=== PATIENT | male | born 1970 | race Caucasian/White ===

== ENCOUNTER 2018-10-21 13:02 | Observation (INO) | payer OTHER ==
[~2018-10-21] VITALS: Ht 175.3 cm; Wt 119.3 kg
--- OUTSIDE RECORDS SUMMARY | 2018-10-21 13:05 | XMS REPORT | Clinical Summary ---
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 Encounters Care Team Description Date Type Specialty 06/05/2018 Clinical Corporate Wellness Support after 10/20/2017 Immunizations Name Dates Previously Given Next Due FLUCELVAX QUAD PF (0.5mL 06/05/2018 syringe) Family History Medical History Relation Name Comments Cancer Maternal Grandmother Relation Name Status Comments Maternal Grandmother Social History Date Tobacco Use Types Packs/Day Years Used Never Smoker Alcohol Use Drinks/Week oz/Week Comments Yes 1 Glasses of wine Sex Assigned at Date Recorded Not on file Industry Job Start Date Occupation Not on file Not on file Not on file Travel End Travel History Travel Start No recent travel history available. Last Filed Vital Signs Not on file Plan of Treatment Health Maintenance Due Date Last Done Comments INFLUENZA VACCINE Completed 06/05/2018 Results Not on fileafter 10/20/2017 Insurance Payer Benefit Subscriber ID Type Phone Address Plan / Group AETNA AETNA PPO xxxxxxxxxx PPO OPEN CHOICE Advance Directives Patient has advance care planning documents on file. For more information, mukesh everett contact: Duy Ann [address] [place], [place] [address] [place] [address]
--- NOTE | 2018-10-21 14:51 | Diagnostic Imaging Report ---
CT BRAIN -[facility] HISTORY: Left-sided numbness, headache COMPARISON: None. TECHNIQUE: Noncontrast axial scans were obtained from skull base to the vertex. Coronal and sagittal reconstructions obtained from the axial data. One or more of the following dose reduction techniques were used: Automated exposure control, adjustment of the mA and/or kV according to patient size, and/or utilization of iterative reconstruction technique. Beam hardening artifacts obscure some details. DISCUSSION: Scalp/Skull: Unremarkable. Brain sulci: Appropriate for patient's age. Ventricles: Normal in size and configuration. No hydrocephalus. Extra-axial spaces: No masses or fluid collections. Mild carotid siphon calcifications are present. Parenchyma: No definite abnormal densities. No mass, hemorrhage, or large vascular territory acute infarct. Dural sinuses: No abnormal densities. Sellar/Suprasellar region: Intact. Skull base: Intact. Incidental findings: Trace left mastoid effusion is present. IMPRESSION: No acute intracranial abnormalities. Signed by: Dr. Joshua Trinh M.D. on 10/21/2018 2:47 PM
[2018-10-21] MEDS ORDERED: ASPIRIN 325 MG TAB PO ONE (15:15)
--- NOTE | 2018-10-21 15:29 | NUR ---
PT RESTING, VITAL SIGNS STABLE, FAMILY AT BEDSIDE, PT TO BE TRANSFERED, PT AND FAMILY AWARE OF POC, PT VOICES NO COMPLAINTS AT THIS TIME.
--- NOTE | 2018-10-21 15:53 | NUR ---
[facility] CALLED FOR TRANSPORT ETA 30-35 MINUTES
--- OUTSIDE RECORDS SUMMARY | 2018-10-21 16:05 | XMS REPORT ---
Author Author [facility] Address Unknown Phone Unavailable Care Team Providers Care Radiation Oncology Nurse Name Role Phone Charissa MONSIVAIS Unavailable Unavailable Problems This patient has no known problems. Allergies, Adverse Reactions, Alerts This patient has no known allergies or adverse reactions. Medications This patient has no known medications. Results Test Description Test Time Test Comments Text Results Atomic Results Result Comments CT BRAIN WO-HOPD 2018-10-21 14:44:00 [place] [address] Patient Name: LEIDY HOUSTON MR #: [id number] : 1970 Age/Sex: 47/M Req #: [id number] Adm Physician: Ordered by: DANIA MONSIVAIS MD Report #: [id number] Location: [facility] Room/Bed: Procedure: [id number] HOPD/CT BRAIN WO-HOPD Exam Date: 10/21/18 Exam Time: 1428 REPORT STATUS: Signed CT BRAIN WO-HOPD HISTORY: Left-sided numbness, headache COMPARISON: None. TECHNIQUE: Noncontrast axial scans were obtained from skull base to the vertex. Coronal and sagittal reconstructions obtained from the axial data. One or more of the following dose reduction techniques were used: Automated exposure control, adjustment of the mA and/or kV according to patient size, and/or utilization of iterative reconstruction technique. Beam hardening artifacts obscure some details. DISCUSSION: Scalp/Skull: Unremarkable. Brain sulci: Appropriate for patient's age. Ventricles: Normal in size and configuration. No hydrocephalus. Extra-axial spaces: No masses or fluid collections. Mild carotid siphon calcifications are present. Parenchyma: No definite abnormal densities. No mass, hemorrhage, or large vascular territory acute infarct. Dural sinuses: No abnormal densities. Sellar/Suprasellar region: Intact. Skull base: Intact. Incidental findings: Trace left mastoid effusion is present. IMPRESSION: No acute intracranial abnormalities. Signed by: Dr. Joshua Trinh M.D. on 10/21/2018 2:47 PM Dictated By: JOSHUA TRINH MD [id number] Transcribed By: CHELA on 10/21/18 1447 COPY TO: DANIA MONSIVAIS MD
--- OUTSIDE RECORDS SUMMARY | 2018-10-21 16:05 | XMS REPORT | Clinical Summary ---
Author Author [facility] Organization [facility] Address Unknown Phone Unavailable Care Team Providers Care Veneer Lathe Operator Name Role Phone Asked, No Pcp PCP [...] more information, mukesh everett contact: Duy Ann [address] [place], [place] [address] [place] [address]
[2018-10-21] MEDS ORDERED: HYDRALAZINE HCL 20 MG/ML VIAL IV PRN (17:15)
[2018-10-21 17:17] VITALS: BP 190/102
[2018-10-21 17:21] VITALS: BP 190/102
--- NOTE | 2018-10-21 17:29 | NUR ---
patient received from [facility] via ambulance. placed in room and oriented to environment. see by Dr Honeycutt and orders received. BP elevated but will treat with hydralazine. no major distress.
--- NOTE | 2018-10-21 18:38 | Diagnostic Imaging Report ---
Exams: Head and intracranial MRA without IV contrast History: Possible stroke, left-sided numbness Comparison studies: Same-day head CT 10/21/2018 at 14:28 hours Technique: Brain: Axial DWI, axial coronal T2 FLAIR, precontrast axial T1 FLAIR, axial and sagittal T2, axial T2*GRE. Intracranial MRA: Axial 3-D [id number] with coronal, sagittal and 3-D MIP reformats. Intravenous contrast: None Findings: Brain: Scalp: No abnormal signal. No masses. Bone marrow: Normal in signal intensity. Brain sulci: Normal in size. Ventricles: Normal in size and configuration. No hydrocephalus. Extra axial spaces: No mass, no fluid collection. Parenchyma: No abnormal signal intensities. No masses, hemorrhage, acute ischemia or chronic ischemic insults. Suprasellar region: No abnormalities. Craniocervical junction: No abnormalities. The foramen magnum is patent. No Chiari malformations. Vessels: Normal flow-voids in the arteries and sinuses. Paranasal sinuses: Nonspecific T2 hyperintense inflammatory mucosal thickening with small retention cyst in the left maxillary sinus. Incidental findings: Nonspecific reactive T2 hyperintense changes in the mastoids bilaterally. Intracranial MRA: No aneurysm or arterial vascular malformation identified. Internal carotid arteries: Patent. No flow signal signal abnormalities. Middle cerebral arteries: Patent, no flow signal abnormalities. Anterior cerebral arteries: Patent, no flow signal abnormalities. Vertebrobasilar circulation: Patent. No signal abnormalities. Included vertebral arteries: Patent, no flow signal abnormalities. Basilar artery: Patent, no flow signal abnormalities. Posterior cerebral arteries: Patent, no flow signal abnormalities. Anatomical variants: Acom: Visualized. Pcoms: Patent bilaterally. Vertebral arteries: Co-dominant. IMPRESSION: Brain: No intracranial abnormalities. Intracranial MRA: 1. No abnormalities. 2. Specifically, no major branch occlusion or stenosis. Signed by: Dr. Too Walker M.D. on 10/21/2018 6:35 PM
[2018-10-21] MEDS: LISINOPRIL 10 MG TAB PO SCH (19:15)
[2018-10-21 20:40] VITALS: BP 187/84
[2018-10-21 21:01] LABS: CREATINE KINASE MB 1.7 ng/mL (0-5.0)
[2018-10-22] VITALS (10 sets, daily range): BP systolic 100–173; BP diastolic 56–75
--- NOTE | 2018-10-22 00:17 | Consultation ---
DATE OF CONSULTATION: 10/21/2018 Cardiology Consultation. CONSULTING PHYSICIAN: Bright Sandra MD, Interventional Cardiology. REASON FOR CONSULTATION: Possible TIA and abnormal EKG. HISTORY OF PRESENT ILLNESS: Mr. Waggoner is a 47-year-old man with history of morbid obesity, hypertension, remote history of coronary angiography per the patient report with no significant abnormalities at that time, who presents to [facility] after being evaluated by Pulmonary with findings of tingling of sudden onset to left upper extremity and left lower extremity while the patient was driving back from the [place]. He denied any chest discomfort or shortness of breath. He denied any lightheadedness or palpitations at that time. He does, however, endorse episodes of palpitations felt intermittently as well as symptoms associated with heart racing at times, which occurs while the patient is at rest or during physical activity. Symptoms have resolved since admission. ALLERGIES: NO KNOWN DRUG ALLERGIES. PAST MEDICAL HISTORY: High blood pressure. SOCIAL HISTORY: No active smoking, alcohol, or drugs. PHYSICAL EXAMINATION: VITAL SIGNS: Temperature 98.7, heart rate 80, respiratory rate 16, blood pressure 170/99. Of note, the patient reports systolic blood pressure in the 200s earlier when actively symptomatic and O2 saturation 96% on room air. GENERAL: In no acute distress. Alert. NECK: No JVD. No carotid bruits. CHEST: Clear to auscultation. CARDIOVASCULAR: Regular rate and rhythm. Normal S1 and S2. No S3. No S4. No murmurs or rubs. ABDOMEN: Soft, nontender, nondistended. No cyanosis, clubbing, or edema. CARDIOVASCULAR MEDICATIONS: Reviewed. Lisinopril 10 mg daily, Lovenox 40 mg subcu daily, hydralazine p.r.n. 10 mg q.6 hours, and aspirin 325 mg daily. IMAGING: EKG, normal sinus rhythm with nonspecific repolarization abnormalities. Brain MRI shows no intracranial abnormalities. Brain intracranial MRA shows no abnormalities, specifically no major branch occlusions or stenosis. CT head, no bleed, no acute intracranial abnormalities. ASSESSMENT: 1. Transient ischemic attack. 2. Abnormal EKG with nonspecific repolarization abnormalities. 3. Uncontrolled hypertension. 4. Morbid obesity. RECOMMENDATIONS: 1. Neurology consult. 2. Statin. 3. Gradual adjustment of antihypertensives to achieve optimal blood pressure control over the following several weeks. 4. Aspirin. 5. Concerned regarding palpitations about possible atrial fibrillation/flutter. Keep in Telemetry while in-house. We will plan for outpatient further workup, which may include telemetry monitoring versus ILR. 6. Obtain echocardiogram, carotid ultrasound. I thank Dr. Honeycutt for the opportunity to participate in the care of Mr. Waggoner. Please feel free to call with any questions or concerns. Bright Sandra MD AFV/MODL /[id number]
--- NOTE | 2018-10-22 01:24 | History and Physical ---
CHIEF COMPLAINT: Numbness and tingling on the left side of the body. HISTORY OF PRESENT ILLNESS: Mr. Waggoner is a 47-year-old male. He presented to the emergency room. 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 When he came in, his blood pressure was 198/97 and he was still having numbness and tingling. It resolved while he was in the emergency room. Now, he has minimal numbness in the left small finger and the left toe, absent little toe. He is denying any chest pain, shortness of breath. He still has some headaches in the emergency room. His EKG showed some T-wave inversion and he has never had any cardiac issues in the past. He has been diagnosed with hypertension, however, he does not take his antihypertensive medications. He is and lives with his girlfriend. His white cell count is 8.6, hemoglobin is 14.0, and hematocrit is 41.8, then he came to the emergency room, his creatinine 0.9. REVIEW OF SYSTEMS: GENERAL: Denies any fever or chills. Denies any head trauma. ENT: Denies any earaches. CVS: Denies any chest pain. RESPIRATORY: Denies any shortness of breath. The rest of the review of systems are negative except as in HPI. PAST MEDICAL HISTORY: Hypertension. PAST SURGICAL HISTORY: None. FAMILY AND SOCIAL HISTORY: He does not smoke. Does not drink. He lives with his girlfriend. 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 PHYSICAL EXAMINATION: VITAL SIGNS: Temperature 97.6, pulse of 98, blood pressure 173/102, respiratory rate 18. HEENT: Head is atraumatic and normocephalic. NECK: Supple. CHEST: Clear to auscultation bilaterally. No wheezing. HEART: S1 and S2 audible. ABDOMEN: Soft and nontender. EXTREMITIES: No pedal edema. NEUROLOGIC: His strength is 5/5 in both upper and lower extremities. LABORATORY DATA: Labs done at [facility]anding emergency room shows white count of 8.6, hemoglobin 14.0, platelets 272. Sodium of 142, potassium of 3.8, chloride 105, BUN 9, creatinine is 0.9. EKG showed normal sinus rhythm, T-wave inversion. CT of the head showed no acute bleed. ASSESSMENT/PLAN: Mr. Waggoner is a 47-year-old male, presented to the emergency room with possible transient ischemic attack and uncontrolled hypertension. CURRENT PROBLEM: 1. Transient ischemic attack. 2. Uncontrolled hypertension. PLAN: 1. I will start the patient on antihypertensive medication, aspirin. 2. MRI and MRA of the head. 3. Neurology consult. 4. Cardiology consult. MD ENRIQUETA Rodríguez/SANDRA /[id number]
--- NOTE | 2018-10-22 04:43 | Consultation ---
DATE OF CONSULTATION: 10/21/2018 Neurology Consult Note HISTORY OF PRESENT ILLNESS: Mr. Waggoner is a 47-year-old right-hand dominant man with past medical history significant for hypertension and hyperlipidemia, not compliant with treatment for approximately 18 months, admitted to [facility] on October 21, 2018, with symptoms suspicious for a transient ischemic attack. Beginning at approximately 11:30 on October 21, 2018, the patient experienced the abrupt onset of tingling in his left hand. Over a short period of time, the tingling progressed over the left arm and the left leg. Mr. Waggoner reports a heavy sensation in the left leg as well. The patient does not report a visual field cut or other disturbance, dysarthria, aphasia, facial droop, hemiparesis, poor balance, impairment of gait, dizziness, or confusion. The above described symptoms persisted for approximately 7-8 minutes, then spontaneously resolved. Over the following 1-2 hours, Mr. Waggoner experienced the above described symptoms approximately 5 or 6 times. With the last occurrence, the patient experienced headache located in the left temporoparietal region without radiation. The pain was described as dull and aching and rated at 4-5/10. There was no photophobia, phonophobia, nausea, vomiting, dizziness, visual disturbance, or other symptoms associated with the headache. Mr. Waggoner does not report a history of migraines or other headaches. The patient does not report neck pain or stiffness. Mr. Waggoner presented to the emergency center at [facility] on the afternoon of October 21, 2018, for further evaluation of his symptoms. Upon arrival in the emergency center, the patient was afebrile with a blood pressure of 198/97 mmHg and a pulse of 98 beats per minute. His neurological examination was documented as being nonfocal. A CT of the brain without contrast was performed while the patient was in the emergency center. There was no evidence of recent large territorial ischemia on the study. Mr. Waggoner was then admitted to [facility] under observation status for further evaluation and treatment. At present, with the exception of some tingling in the 5th digit of the left hand and tingling in the left ankle, all of the above described symptoms have resolved. REVIEW OF SYSTEMS: Tingling of the left arm and leg, chronic low back pain, headache. Otherwise, a 12-point review of systems is negative. PAST MEDICAL HISTORY: Hypertension, hyperlipidemia, elevated uric acid level, and nephrolithiasis. PAST SURGICAL HISTORY: Cardiac catheterization, left ankle arthroscopy, tonsillectomy, appendectomy, and vasectomy. PAST HOSPITALIZATIONS: Surgeries/procedures as listed. FAMILY MEDICAL HISTORY: Hypertension, hyperlipidemia, heart disease with myocardial infarctions, strokes, and colon cancer. SOCIAL HISTORY: Mr. Waggoner is . 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 The patient does not report current or prior tobacco, alcohol, or recreational drug use. HOME MEDICATIONS: None. ALLERGIES: NO KNOWN DRUG ALLERGIES. NO KNOWN FOOD ALLERGIES. NO KNOWN ALLERGIES TO LATEX. NO KNOWN ALLERGIES TO IODINE OR OTHER CONTRAST MATERIALS. PHYSICAL EXAMINATION: VITAL SIGNS: Height 69 inches, weight 263 pounds, BMI is 38.8 kg/m2. Blood pressure 173/102 mmHg, pulse 76 beats per minute, respiratory rate 17 breaths per minute, and oxygen saturation 96% on room air. GENERAL: The patient is awake and alert, does not appear distressed. Morbidly obese. HEENT: Normocephalic, atraumatic. Pupils are equal, round, and reactive to light. Moist mucous membranes. NECK: Supple. No appreciable thyromegaly. No appreciable carotid bruits. CARDIOVASCULAR: S1 and S2, regular rate and rhythm. No murmurs, rubs, or gallops. RESPIRATORY: Clear to auscultation bilaterally. No wheezes, rhonchi, or rales. EXTREMITIES: The skin is warm and dry. No clubbing or cyanosis. There is trace pretibial pitting edema. The posterior tibial and dorsalis pedis pulses are 2+ and symmetric. SKIN: No rashes or lesions. NEUROLOGIC: Memory/Attention: The patient is awake and alert, oriented to person, place, time, and situation. Cranial Nerves: Cranial nerve I - not tested. Cranial nerve II, III, IV and - pupils are equal and round, reactive briskly to light (from 4 mm to 2 mm). Extraocular movements intact. No nystagmus. Cranial nerve V - sensation to light touch and pinprick is intact in the bilateral V1 through V3 distributions. Strength in the temporalis and mastoid muscles is within normal limits. Cranial nerves VII - the face is symmetric as are all facial movements. Strength is within normal limits. Cranial nerve VIII - hearing is intact to finger rub bilaterally. Cranial nerve IX, X - the soft palate elevates equally and symmetrically. Cranial nerve XI - normal strength to the bilateral sternocleidomastoid and trapezius muscles. Cranial nerves XII - the tongue protrudes midline and moves symmetrically from side to side. Strength: Bulk is normal. Strength is 5/5 in the bilateral deltoids, biceps, triceps, wrist flexors and extensors, finger flexors and extensors, intrinsic hand muscles, hip flexors, knee flexors and extensors, ankle dorsiflexion and plantar flexion, and intrinsic foot muscles. Tone is normal. DTRs: Deep tendon reflexes are 2+ and symmetric at the triceps, biceps, brachioradialis, patellas, and Achilles. Plantar responses are flexor bilaterally. Sensation: Sensation is intact to light touch and pinprick in both arms and both legs. Cerebellar: [id number] and heel-seaman movements are intact without dysmetria or other impairment. Gait: Deferred. Speech: Spontaneous speech is normal without dysarthria or aphasia. Repetition is intact. Involuntary movements: None. Pronator drift: None. LABORATORY DATA: A comprehensive metabolic panel revealed mildly elevated AST and ALT. A complete blood count with differential and platelets was unremarkable. Cardiac enzymes are negative x1. DIAGNOSTIC STUDIES: Electrocardiogram, 10/21/2018: Normal sinus rhythm at [address] of the brain without contrast, 10/21/2018: On my review, there is no evidence of recent or remote large territorial ischemia, hemorrhage, mass, or mass effect. Cerebral volumes are appropriate for age. There are no findings suggestive of chronic small vessel ischemic disease. MRI of the brain without contrast, 10/21/2018: On my review, there is no evidence of recent large territorial ischemia, hemorrhage, mass, or mass effect. No remote vascular insults are seen. Cerebral volumes are appropriate for age. There are no findings compatible with chronic small vessel ischemic disease. MRA of the brain, 10/21/2018: Unremarkable. ASSESSMENT AND PLAN: Mr. Waggoner is a 47-year-old right-hand dominant man with multiple untreated vascular risk factors, admitted to [facility] on October 21, 2018, with intermittent tingling over the left arm and left leg. At present, the patient's neurological examination is nonfocal. His laboratory data and other diagnostic studies have been reviewed and are documented above. In my opinion, it is unlikely Mr. Waggoner experienced a transient ischemic attack. Under normal circumstances, a person will not experience several TIAs, one after another. Generally, a person may experience one or two TIAs, by several hours/days, then will have a stroke. Given the presence of a headache with the last "TIA," it is possible the patient experienced a migraine aura. A seizure is another possibility, though less likely due to the duration of each event. Lastly, an entrapment neuropathy or radiculopathy is possible as well. However, a TIA cannot be absolutely excluded, and Mr. Waggoner does have vascular risk factors which have gone untreated for approximately eighteen months. Therefore, the patient will be evaluated and treated as though he experienced a TIA as this is the most serious of potential diagnoses. 1. A lipid panel and hemoglobin A1C will be ordered. 2. An echocardiogram will be ordered. 3. Bilateral carotid artery ultrasound with Doppler will be ordered. 4. Treatment with Aspirin 325 mg by mouth daily will be continued. 5. The patient's blood pressure may be gradually normalized. His goal blood pressure prior to discharge is less than 140/90 mmHg. Lisinopril 10 mg by mouth daily as been prescribed. Mr. Waggoner has a PRN antihypertensive medication available as well. Monitor vital signs per unit protocol and add/adjust medications as necessary. 6. The patient's goal total cholesterol is less than 200 with a LDL of less than 70. Follow up the results of the lipid panel and prescribe a statin as appropriate. 7. The patient's goal hemoglobin A1C is less than 7.0. Follow up the results of the hemoglobin A1C. Tight glycemic control is recommended while the patient is in the hospital. 8. Speech and physical therapy consultations will be deferred because the patient has no deficits. 9. GI prophylaxis with Pepcid 20 mg by mouth twice daily with meals. DVT prophylaxis with Lovenox 40 mg subcutaneously daily. 10. Defer treatment of the remaining medical comorbidities to the primary/other services following the patient. Thank you for this consultation. I will continue to follow the patient while he remains in the hospital. Time Spent: 50 minutes. Glenda Hobbs MD CP/SANDRA /[id number] [place]
[2018-10-22 05:38] LABS: BASOPHILS # (AUTO) 0.1 (0.0-0.1); BASOPHILS % 0.6 % (0.0-1.0); EOSINOPHILS # (AUTO) 0.2 (0.0-0.4); HEMATOCRIT 43.1 % (38.2-49.6); HEMOGLOBIN 14.6 g/dL (14.0-18.0); LYMPHOCYTES # (AUTO) 3.2 (1.0-3.2); MEAN CORPUSCULAR HEMOGLOBIN 30.5 pg (28-32); MEAN CORPUSCULAR HGB CONC 33.9 g/dL (31-35); MONOCYTES # (AUTO) 0.9 (0.2-0.8); MONOCYTES % 11.2 % (4.4-11.3); NEUTROPHILS # (AUTO) 3.8 (2.1-6.9); NEUTROPHILS % 45.9 % (38.7-80.0); PLATELET COUNT 263 x10e3/uL (140-360); RED BLOOD COUNT 4.79 x10e6/uL (4.3-5.7); RED CELL DISTRIBUTION WIDTH 12.4 % (11.7-14.4)
[2018-10-22 05:54] LABS: ANION GAP 11.1 mmol/L (8-16); BLOOD UREA NITROGEN 8 mg/dL (7-26); BUN/CREATININE RATIO 8 (6-25); CALCIUM 8.7 mg/dL (8.4-10.2); CARBON DIOXIDE 28 mmol/L (22-29); CHLORIDE 102 mmol/L (98-107); CREATININE, SERUM 0.97 mg/dL (0.72-1.25); EST GLOMERULAR FILTRATION RATE > 60 ML/MIN (60-); GLUCOSE 102 mg/dL (74-118); POTASSIUM 5.1 mmol/L (3.5-5.1); SODIUM 136 mmol/L (136-145)
[2018-10-22 06:02] LABS: CHOL/HDL RATIO 5.8 (3.9-4.7)
[2018-10-22 06:08] LABS: CREATINE KINASE MB 1.5 ng/mL (0-5.0)
--- NOTE | 2018-10-22 07:00 | NUR ---
RN performed morning assessment on patient. Alert and oriented x 3 with elevated BP. Patient reported no chest pain, weaknesses.
[2018-10-22] MEDS: FAMOTIDINE 20 MG TAB PO SCH ×2 (07:22→17:22)
[2018-10-22] MEDS: LISINOPRIL 10 MG TAB PO SCH (08:30)
[2018-10-22] MEDS: ASPIRIN 325 MG TAB EC PO SCH (08:30)
[2018-10-22] MEDS: METOPROLOL SUCCINATE 25 MG TAB XL PO SCH (08:30)
[2018-10-22] MEDS ORDERED: ATORVASTATIN 20 MG TAB PO SCH (09:00)
[2018-10-22 14:01] LABS: CREATINE KINASE MB 1.4 ng/mL (0-5.0)
--- NOTE | 2018-10-22 14:37 | NUR ---
SOCIAL WORK INITIAL ASSESSMENT Mechanical Apprentice to bedside to discuss plan of care with patient/family. CM/SW role and care transitions discussed. Anticipated discharge plan discussed along with duration of care. CM/SW discussed patients right to make decisions in care. CM/SW work hours given. Patient lives: HOUSE WITH [facility] Admit/Transfer: VIA ED POA/Emergency contact: GIRLIEND [phone] Current/Previous Home Health: NONE PCP/Follow-up Care: NONE Current/Previous DME: NONE Other Services: NONE Employment Status: [employer] Areas of Concerns: NONE Referral Needs: NONE Education Needs: NONE IMM/CHAPMAN given and signed (if applicable): NA Goal for discharge: RETURN TO COMM[facility]ITY CM/SW left business card at the bedside with contact information. Name and number was also written on the patients whiteboard. Patient verbalized understanding of discussion. CM will follow-up with ongoing discharge and transition of care needs.
[2018-10-22] MEDS ORDERED: ENOXAPARIN SOD INJ 40 MG/0.4 ML SYR SC SCH (17:00)
[2018-10-22] MEDS ORDERED: ATORVASTATIN 40 MG TAB PO SCH (21:00)
--- NOTE | 2018-10-23 03:29 | Progress Note ---
DATE: 10/22/2018 Cardiology Progress Note SUBJECTIVE: No recurrent episodes of numbness or other complaints. Preserved left ventricular systolic function on echocardiogram. No significant extracranial carotid disease other than mild plaque on 2-D images. OBJECTIVE: VITAL SIGNS: Temperature 97.6, heart rate 73, blood pressure 133/75, respiratory rate 16, O2 saturation 97%. GENERAL: In no acute distress, alert. NECK: No JVD. CHEST: Clear to auscultation. CARDIOVASCULAR: Regular rate and rhythm. Normal S1 and S2. No S3. No S4. ABDOMEN: Soft, nontender, and nondistended. EXTREMITIES: No edema. CARDIOVASCULAR MEDICATIONS: Reviewed. On aspirin 325 mg daily, lisinopril 10 mg daily, Lovenox 40 mg subcu daily, metoprolol succinate 25 mg daily, and atorvastatin 80 mg at bedtime. LABORATORY DATA: Potassium 5.1, bicarbonate 28, creatinine 0.9, white blood cells 8.1, hemoglobin 14.6, platelets 263, LDL 174, total cholesterol 250, and triglycerides 163. TSH 2.1. Hemoglobin A1c was 5.8. No events on telemetry, in normal sinus rhythm. ASSESSMENT: 1. Transient ischemic attack. 2. Uncontrolled risk factors including hypertension and mixed dyslipidemia as well as morbid obesity. RECOMMENDATIONS: Continue current cardiovascular medications with close monitoring of potassium. Diuretics can be added and FREEMAN inhibitor dose decreased prior to discharge. Outpatient followup for telemetry monitoring and further workup is advised. MD YOHAN Jung/SANDRA /[id number]
[2018-10-23 04:16] VITALS: BP 151/71
[2018-10-23 07:24] VITALS: BP 153/63
--- NOTE | 2018-10-23 07:35 | NUR ---
patient resting in bed, alert with no distress, call light in reach, denies any SOB or chestpain now
[2018-10-23 08:00] VITALS: BP 153/63
[2018-10-23] MEDS: ASPIRIN 325 MG TAB EC PO SCH (08:19)
[2018-10-23] MEDS: FAMOTIDINE 20 MG TAB PO SCH (08:19)
[2018-10-23] MEDS: LISINOPRIL 10 MG TAB PO SCH (08:20)
[2018-10-23] MEDS: METOPROLOL SUCCINATE 25 MG TAB XL PO SCH (08:20)
[2018-10-23 11:14] VITALS: BP 139/77
[2018-10-23] MEDS ORDERED: LISINOPRIL10 MG PO (13:00)
[2018-10-23] MEDS ORDERED: METOPROLOL TART25 MG PO (13:00)
[2018-10-23] MEDS ORDERED: ASPIR 8181 MG PO (13:01)
--- NOTE | 2018-10-23 13:10 | NUR ---
Dr Honeycutt here for rounds, stated patient can be discharged home, prescriptions on the chart
--- NOTE | 2018-10-23 13:34 | NUR ---
patient discharged home, Alert with no distress, no c/o numbness or tingling, denies any chest pain or SOB, Excuse letter given from Dr Honeycutt. prescriptions given, patient aware about f/up appointments, Dr Crane's and [facility] office numbers given to schedule appointments. IV canula removed with tip intact, no ss of infiltration noted, escorted him to walk to front [facility], all personnel belongings taken with the patient
--- NOTE | 2018-10-23 15:05 | Progress Note ---
DATE: Cardiology Progress Note SUBJECTIVE: No complaints today. Denies recurrent numbness. No other current complaints including absence of weakness, speech issues, visual disturbances, chest pain, shortness of breath, or palpitations. OBJECTIVE: VITAL SIGNS: Temperature 96.7, heart rate 68, blood pressure 139/77, respiratory rate 21, and O2 saturation 97%. BMI 38.8. GENERAL: In no acute distress, alert. NECK: No JVD. CHEST: Clear to auscultation. CARDIOVASCULAR: Regular rate and rhythm. Normal S1, S2. ABDOMEN: Soft. EXTREMITIES: No edema. MEDICATIONS: Cardiovascular medications reviewed. Aspirin 325 mg daily, lisinopril 10 mg daily, Lovenox 40 mg subcu daily, metoprolol succinate 25 mg daily, atorvastatin 80 mg at bedtime. LABORATORY DATA: Studies reviewed. Sodium 136, potassium 5.1, chloride 102, bicarbonate 28, BUN 8, creatinine 0.97, glucose 102. White blood cells 8.18, hemoglobin 14.6, platelets 263. ASSESSMENT: 1. Transient ischemic attack. 2. Hypertension. 3. Mixed dyslipidemia. 4. Morbid obesity. RECOMMENDATIONS: 1. Continue current cardiovascular medications. 2. Outpatient followup advised for consideration of telemetry monitoring and further workup in conjunction with Neurology. I thank Dr. Honeycutt for the opportunity to participate in the care of Mr. Waggoner. Please feel free to call with any questions. MD YOHAN Jung/VIOLETL /[id number]
--- NOTE | 2018-10-24 11:30 | Discharge Summary ---
FINAL DIAGNOSES: 1. Transient ischemic attack. 2. Uncontrolled hypertension. 3. Obesity. 4. Hyperlipidemia. ADMISSION HISTORY AND HOSPITAL COURSE: Mr. Waggoner is a 47-year-old male admitted with numbness and tingling of the left side of the arm and leg. MRI/MRA of the brain was negative. Neurology and Cardiology evaluated the patient, recommended blood pressure control and starting on the statin. I have started the patient on atorvastatin, lisinopril, and metoprolol. His blood pressure has been controlled. He will be discharged home to follow up with his primary care physician as an outpatient in 2-3 weeks. Discharge medication list is attached and work excuse has been given till Friday. MD ENRIQUETA Rodríguez/SANDRA /[id number]
== END 2018-10-23 13:30 | disposition home or self-care (01) ==
LOC: FSED 13:02 → ERHOLD 15:40 → IMCU 17:06
PROVIDERS: ADMIT Internal Medicine; ATTEND Internal Medicine
DX: G45.9 Transient cerebral ischemic attack, unspecified (principal); I10 Essential (primary) hypertension; E78.00 Pure hypercholesterolemia, unspecified; Z68.38 Body mass index [BMI] 38.0-38.9, adult; R94.31 Abnormal electrocardiogram [ECG] [EKG]; E66.9 Obesity, unspecified
CPT/HCPCS: 36415 ×2; 70450; 70544; 70551; 80048; 80053; 80061; 82550 ×2; 82553 ×2; 83036; 84443; 84484 ×2; 85025 ×2; 93005; 93306; 93880; 97139; 99284; G0378 ×3; J1650